=== PATIENT | female | born 1955 | race Caucasian/White ===

== ENCOUNTER → 2020-11-15 | Outpatient (CLI) | payer BC ==
[~2020-11-15] MED LIST: ALBUTEROL2.5 MG/3 M INH; AUGMENTIN 875-1 EACH PO; CALCIUM + VITA1 EACH PO; COZAAR 25MG TAB25 MG PO; DAILY VALUE1 EACH PO; FISH OIL 1,0001 EAC1 PO; FUROSEMIDE40 MG PO; GLUCOSAMINE-CH1 EA14 PO; HUMIBID LA TAB600 MG PO; LEVOCETIRIZINE D5 MG PO; LEVOTHYROXINE125 MCG PO; MONTELUKAST SOD10 MG PO; PHENERGAN6.25 MG/1 PO; VENTOLIN HFA 66.7 GM INH; VITAMIN C 500500 MG PO; VITAMIN E400 UNI3 PO
== END ==
LOC: NM 08:10
DX: R74.8 Abnormal levels of other serum enzymes (principal)
CPT/HCPCS: 78306; A9503